=== PATIENT | male | born 1935 | race Caucasian/White ===

== ENCOUNTER 2019-01-12 23:36 | Emergency (ER) | payer OTHER ==
[~2019-01-12] VITALS: Ht 185.4 cm; Wt 88.9 kg
[~2019-01-12 23:36] MED LIST: ASPI81EC PO; OMEP20ER PO; PROM25 PO; ROSU5 PO; XARELTO10 MG; [UNRECOGNIZED DRUG - REMARK]
[2019-01-13 00:43] LABS: Source, Urine Catheter
[2019-01-13 00:48] LABS: Bilirubin, Urine Neg (Neg); Blood, Urine 2+ (Neg); Glucose Qualitative, Urine Neg (Neg); Ketones, Urine Neg (Neg); Leukocyte Esterase, Urine 1+ (Neg); Nitrite, Urine Neg (Neg); Protein, Urine Neg (Neg); Urobilinogen, Urine NORM (Normal)
[2019-01-13 00:53] LABS: Appearance, Urine Clear (Clear); Color, Urine Yellow (P-Yellow)
[2019-01-13 00:55] LABS: Bacteria Few /hpf; Squamous Epithelial Cells Not Seen /hpf (Few); White Blood Cells, Urine 0-2 /hpf (0-5)
== END 2019-01-13 01:19 | disposition home or self-care (01) ==
LOC: ER 23:36
PROVIDERS: Emergency Medicine
DX: R33.9 Retention of urine, unspecified (principal); Z88.5 Allergy status to narcotic agent; Z79.899 Other long term (current) drug therapy
CPT/HCPCS: 51702; 81001; 87077; 87086; 87186; 99283-25

== ENCOUNTER 2019-03-02 08:18 | Day surgery (SDC) | payer OTHER, SELFPAY ==
[~2019-03-02 08:18] MED LIST changes: +ALFU10 PO; +DILT60 PO; +LANS15EC PO; +POLY500 PO; +SERT25 PO; +VITAMIN B12 PO; +Vitamin D2000 UNIT PO; +XARELTO15 MG PO
--- NOTE | 2019-03-02 09:49 | NUR ---
Ambulatory in Day Surgery. Surgical site prepped with 2% Chlorhexidine cloth wipe. History, Chart, Medications and Allergies reviewed before start of procedure.Patient confirms NPO status and agrees with scheduled surgery. Pre-Op teaching done. Pt verbalizes understanding. Patient reports completing Chlorhexadine shower X2 prior to admission to hospital.Patient States Post-Procedure ride home has been arranged.
--- NOTE | 2019-03-02 12:26 | NUR ---
PT AWAKE, CONVERSING WITH STAFF. EATING CRACKERS AND SIPPING ON PO FLUIDS. DAUGHTER AT BEDSIDE. PT RATES PAIN 2/10 BUT STATES "OH I FEEL THAT" WHEN SAT UP ON STRETCHER.
--- NOTE | 2019-03-02 12:36 | NUR ---
PT DENIES NEED FOR PAIN MEDICATION. WISHES TO GO HOME WITHOUT TAKING ANY. DAUGHTER WILL TAKE PATIENT HOME AND BE WITH PATIENT TODAY.
--- NOTE | 2019-03-02 12:42 | NUR ---
REVIEWED DISCHARGE INSTRUCTIONS WITH PATIENT AND DAUGHTER, BOTH OF WHOM VERBALIZE UNDERSTANDING OF ALL INSTRUCTIONS GIVEN. PT STATES HE FEELS "READY TO GO HOME".
--- NOTE | 2019-03-02 13:00 | NUR ---
IV DC TIP INTACT. PT DC HOME VIA WC WITH DAUGHTER TO DRIVE HIM. DRESSED SELF WITH MINIMAL ASSISTANCE BY THIS RN.
== END 2019-03-02 22:43 | disposition home or self-care (01) ==
LOC: ORSCMMR 08:18 → ORD 10:15 → ORSCMMR 10:15
PROVIDERS: Surgery
PROC: 0YU50JZ Supplement Right Inguinal Region with Synthetic Substitute, Open Approach (ICD-10-PCS; principal; 2019-03-02 10:15)
DX: K40.90 Unilateral inguinal hernia, without obstruction or gangrene, not specified as recurrent (principal); I10 Essential (primary) hypertension; I48.0 Paroxysmal atrial fibrillation; Z79.01 Long term (current) use of anticoagulants; K21.9 Gastro-esophageal reflux disease without esophagitis; Z79.899 Other long term (current) drug therapy
CPT/HCPCS: C1781; J0690; J1100; J2405; J2704; J3010; J7120

== ENCOUNTER 2019-03-06 08:06 | Emergency (ER) | payer OTHER ==
[~2019-03-06] VITALS: Ht 185.4 cm; Wt 90.7 kg
[2019-03-06 08:50] LABS: Calcium, Ionized (POC) 1.14 mmol/L (1.10-1.46); Chloride (POC) 99 mmol/L (98-108); Creatinine (POC) 0.8 mg/dL (0.8-1.3); Glucose (ISTAT POC) 92 mg/dL (70-99); Hemoglobin (POC) 12.2 g/dL (13.5-17.5); Potassium (POC) 4.2 mmol/L (3.5-5.5); Sodium (POC) 136 mmol/L (135-148); Total CO2 (POC) 30 mmol/L (21-32)
[2019-03-06] MEDS ORDERED: FINA5 PO (09:00)
== END 2019-03-06 11:23 | disposition home or self-care (01) ==
LOC: ER 08:06
PROVIDERS: Emergency Medicine
DX: S01.01XA Laceration without foreign body of scalp, initial encounter (principal); S80.02XA Contusion of left knee, initial encounter; S80.01XA Contusion of right knee, initial encounter; D68.9 Coagulation defect, unspecified; T50.905A Adverse effect of unspecified drugs, medicaments and biological substances, initial encounter; E78.00 Pure hypercholesterolemia, unspecified; Z88.5 Allergy status to narcotic agent; Z88.8 Allergy status to other drugs, medicaments and biological substances; Z79.899 Other long term (current) drug therapy; Z79.01 Long term (current) use of anticoagulants; W18.39XA Other fall on same level, initial encounter
CPT/HCPCS: 12004; 36415; 70450; 73562-LT; 80047; 85014; 90471; 90714; 93005; 93010; 99284-25

== ENCOUNTER 2019-10-28 11:18 | Emergency (ER) | payer OTHER ==
[~2019-10-28] VITALS: Ht 182.9 cm; Wt 86.2 kg
[~2019-10-28 11:18] MED LIST changes: +FINA5 PO; +OXYC5 PO
[2019-10-28] MEDS ORDERED: HYDR1TAB94 PO (15:47)
[2019-10-28] MEDS ORDERED: Miralax17 GM PO (15:47)
[2019-10-28] MEDS ORDERED: ONDA4ODT SL (15:47)
== END 2019-10-28 16:04 | disposition home or self-care (01) ==
LOC: ER 11:18
DX: S22.081A Stable burst fracture of T11-T12 vertebra, initial encounter for closed fracture (principal); Z88.5 Allergy status to narcotic agent; Z88.8 Allergy status to other drugs, medicaments and biological substances; Z79.899 Other long term (current) drug therapy; E78.5 Hyperlipidemia, unspecified; W18.2XXA Fall in (into) shower or empty bathtub, initial encounter
CPT/HCPCS: 36415; 72148; 96374; 96375; 99283-25; J2405; J3010

== ENCOUNTER 2020-11-17 08:34 | Day surgery (SDC) | payer OTHER ==
[~2020-11-17] VITALS: Ht 188 cm; Wt 80.4 kg
[~2020-11-17 08:34] MED LIST changes: +HYDR1TAB94 PO; +Miralax17 GM PO; +ONDA4ODT SL
== END 2020-11-17 11:40 | disposition home or self-care (01) ==
LOC: ORSCSDS 08:34
PROVIDERS: Internal Medicine Gastroenterology
PROC: 0DBK8ZX Excision of Ascending Colon, Via Natural or Artificial Opening Endoscopic, Diagnostic (ICD-10-PCS; principal; 2020-11-17 10:15)
PROC: 0DB98ZX Excision of Duodenum, Via Natural or Artificial Opening Endoscopic, Diagnostic (ICD-10-PCS; principal; 2020-11-17 10:15)
PROC: 0DBH8ZX Excision of Cecum, Via Natural or Artificial Opening Endoscopic, Diagnostic (ICD-10-PCS; principal; 2020-11-17 10:15)
PROC: 0DB78ZX Excision of Stomach, Pylorus, Via Natural or Artificial Opening Endoscopic, Diagnostic (ICD-10-PCS; principal; 2020-11-17 10:15)
DX: D50.9 Iron deficiency anemia, unspecified (principal); D12.0 Benign neoplasm of cecum; D12.2 Benign neoplasm of ascending colon; K21.9 Gastro-esophageal reflux disease without esophagitis; K29.70 Gastritis, unspecified, without bleeding; K31.7 Polyp of stomach and duodenum; K57.30 Diverticulosis of large intestine without perforation or abscess without bleeding; K64.8 Other hemorrhoids; Z87.891 Personal history of nicotine dependence; Z79.01 Long term (current) use of anticoagulants; Z79.899 Other long term (current) drug therapy
CPT/HCPCS: 88305; 88342; J2704; J7120

== ENCOUNTER → 2021-02-08 | Outpatient (CLI) | payer OTHER ==
[2021-02-09 09:42] LABS: Stool Occult Bld Immuno 1 Negative (NEGATIVE)
== END | disposition home or self-care (01) ==
LOC: LAB SHORT 09:00 → LAB 09:00
PROVIDERS: Internal Medicine Gastroenterology
DX: D50.9 Iron deficiency anemia, unspecified (principal)
CPT/HCPCS: 82274

== ENCOUNTER → 2021-06-22 | Outpatient (CLI) | payer OTHER ==
[2021-06-22 13:09] LABS: Source, Urine Clean Catch
[2021-06-22 17:59] LABS: Appearance, Urine Clear (Clear); Bilirubin, Urine Neg (Neg); Blood, Urine 2+ (Neg); Color, Urine Yellow (P-Yellow); Glucose Qualitative, Urine Neg (Neg); Ketones, Urine Neg (Neg); Leukocyte Esterase, Urine Neg (Neg); Nitrite, Urine Neg (Neg); Protein, Urine Neg (Neg); Urobilinogen, Urine 2+ (Normal)
[2021-06-22 18:37] LABS: Bacteria Few /hpf; Calcium Oxalate Crystals Rare /hpf; Hyaline Casts 0-2 /lpf (0-2); Mucus Light (0-Heavy); Squamous Epithelial Cells Rare /hpf (Few)
== END ==
LOC: LAB SHORT 13:06 → LAB 13:06
PROVIDERS: Internal Medicine
DX: R31.29 Other microscopic hematuria (principal)
CPT/HCPCS: 81001

== ENCOUNTER 2022-07-24 12:53 | Inpatient (IN) | payer OTHER ==
[~2022-07-24] VITALS: Ht 175.3 cm; Wt 84.5 kg
[2022-07-24 13:27] LABS: BASOPHILS ABSOLUTE AUTO 0.05 K/mm3 (0.00-0.23); BASOPHILS PERCENT AUTO 0 % (0-2); EOSINOPHILS ABSOLUTE AUTO 0.21 K/mm3 (0.00-0.68); EOSINOPHILS PERCENT AUTO 2 % (0-6); Hemoglobin 10.8 g/dL (13.5-17.5); IMMATURE GRAN ABSOLUTE AUTO 0.09 K/mm3 (0.00-0.10); IMMATURE GRAN PERCENT AUTO 1 % (0-1); LYMPHOCYTES ABSOLUTE AUTO 1.01 K/mm3 (0.84-5.20); LYMPHOCYTES PERCENT AUTO 7 % (21-46); MONOCYTES ABSOLUTE AUTO 0.81 K/mm3 (0.16-1.47); MONOCYTES PERCENT AUTO 6 % (4-13); Mean Corpuscular HGB Conc 32.7 g/dL (31.5-36.5); Mean Corpuscular Volume 89 fL (80-100); Mean Platelet Volume 9.3 fL (9.1-12.4); NEUTROPHILS ABSOLUTE AUTO 11.54 K/mm3 (1.96-9.15); NEUTROPHILS PERCENT AUTO 84 % (41-73); Platelet Count 237 K/mm3 (150-400); RDW Coefficient Variation 12.9 % (11.7-14.2); RDW Standard Deviation 41.4 fL (35.1-46.3); Red Blood Cell Count 3.72 M/mm3 (4.30-5.90); White Blood Cell Count 13.71 K/mm3 (4.00-11.30)
[2022-07-24] MEDS ORDERED: TAMSULOSIN HCL0.4 M1 PO (13:34)
[2022-07-24] MEDS ORDERED: PANTOPRAZOLE SO40 M2 PO (13:35)
[2022-07-24] MEDS ORDERED: GABA100 PO (13:35)
[2022-07-24 13:40] LABS: Albumin, Blood 3.2 g/dL (3.4-5.0); Albumin/Globulin Ratio 0.7 (0.8-1.8); Bilirubin, Total 0.6 mg/dL (0.1-1.0); Calcium, Blood 9.4 mg/dL (8.5-10.1); Creatinine, Blood 0.7 mg/dL (0.60-1.20); Globulin, Blood 4.4 g/dL (2.2-4.0); Potassium, Blood 4.2 mmol/L (3.5-5.5); Total Protein, Blood 7.6 g/dL (6.4-8.2)
[2022-07-24 16:50] LABS: Source, Urine Straight Cath
[2022-07-24 16:52] LABS: Appearance, Urine Clear (Clear); Bilirubin, Urine Neg (Neg); Blood, Urine 2+ (Neg); Color, Urine Amber (P-Yellow); Glucose Qualitative, Urine Neg (Neg); Ketones, Urine Neg (Neg); Leukocyte Esterase, Urine Neg (Neg); Nitrite, Urine Neg (Neg); Protein, Urine 1+ (Neg); Specific Gravity, Urine 1.015 (1.003-1.022); Urobilinogen, Urine 1+ (Normal)
[2022-07-24 17:03] LABS: Bacteria Many /hpf; Mucus Light (0-Heavy); Squamous Epithelial Cells Rare /hpf (Few)
[2022-07-24 17:53] VITALS: BP 130/65
[2022-07-24] MEDS ORDERED: IBUP400 PO (18:01)
[2022-07-24] MEDS ORDERED: Acetaminophen650 M1 PO (18:01)
--- NOTE | 2022-07-24 18:21 | NUR ---
PATIENT CAME UP FROM ER TODAY AT 1800. LEFT HIP FX PATIENT IS A&OX3-FORGETFUL AT TIMES WITH BED ALARM ON A PRECAUTION. VS ARE WNL. PATIENT RATES 10/10 PAIN ON THE LEFT HIP AND HAS BEEN GIVEN IV DILAUDID. LEFT HIP IS SWOLLEN. PATIENT DENIES NUMBNESS OR TINGLING. CAN MOVE ALL FINGERS AND TOES WHEN ASKED. PATIENT IS LAYING IN BED WITH CALL LIGHT IN REACH. DAUGHTER AND SON WERE IN THE ROOM BUT LEFT TO GO HOME AND SLEEP. THEIR PHONE NUMBERS ARE ON THE WHITE BOARD. THE PLAN IS FOR SURGERY WITH DR. PAGAN TOMORROW. PATIENT WILL BE NPO AT MIDNIGHT.
[2022-07-24 19:07] VITALS: BP 112/59
[2022-07-25] VITALS (25 sets, daily range): BP systolic 88–144; BP diastolic 37–98
--- NOTE | 2022-07-25 04:57 | NUR ---
SHIFT SUMMARY VSS. TELE READS AFIB @78. PT SLEPT ON AND OFF T/O THE NIGHT. MEDICATED FOR PAIN WITH PRN'S. LOW URINE OUTPUT NOTED, [address] LOUISE CALLED AND OBTAINED ORDER FOR OTD OF NS 500 ML/HR. SENSATION AND CIRCULATION REMAINS INTACT. NO ACUTE EVENTS T/O THE NIGHT. PLAN FOR PT TO GO TO OR TODAY. THE PATIENT IS CURRENTLY SLEEPING, IN NO DISTRESS, CALL LIGHT IN REACH
[2022-07-25 06:09] LABS: BASOPHILS ABSOLUTE AUTO 0.04 K/mm3 (0.00-0.23); BASOPHILS PERCENT AUTO 1 % (0-2); EOSINOPHILS ABSOLUTE AUTO 0.22 K/mm3 (0.00-0.68); EOSINOPHILS PERCENT AUTO 3 % (0-6); Hematocrit 25.8 % (37.0-53.0); Hemoglobin 8.2 g/dL (13.5-17.5); IMMATURE GRAN ABSOLUTE AUTO 0.04 K/mm3 (0.00-0.10); IMMATURE GRAN PERCENT AUTO 1 % (0-1); LYMPHOCYTES ABSOLUTE AUTO 0.86 K/mm3 (0.84-5.20); LYMPHOCYTES PERCENT AUTO 11 % (21-46); MONOCYTES ABSOLUTE AUTO 0.96 K/mm3 (0.16-1.47); MONOCYTES PERCENT AUTO 12 % (4-13); Mean Corpuscular HGB Conc 31.8 g/dL (31.5-36.5); Mean Corpuscular Volume 91 fL (80-100); Mean Platelet Volume 9.6 fL (9.1-12.4); NEUTROPHILS ABSOLUTE AUTO 6.09 K/mm3 (1.96-9.15); NEUTROPHILS PERCENT AUTO 74 % (41-73); Platelet Count 191 K/mm3 (150-400); RDW Coefficient Variation 13.2 % (11.7-14.2); RDW Standard Deviation 43.9 fL (35.1-46.3); Red Blood Cell Count 2.83 M/mm3 (4.30-5.90); White Blood Cell Count 8.21 K/mm3 (4.00-11.30)
[2022-07-25 06:51] LABS: Alanine Aminotransfer (ALT/SGP 14 U/L (12-78); Albumin, Blood 2.5 g/dL (3.4-5.0); Albumin/Globulin Ratio 0.7 (0.8-1.8); Alk Phos 64 U/L (50-136); Anion Gap Unable to Calculate mmol/L (6-16); Aspartate Aminotrans (AST/SGOT 12 U/L (12-37); Bilirubin, Total 0.7 mg/dL (0.1-1.0); Blood Urea Nitrogen 19 mg/dL (8-24); Bun/Creatinine Ratio 20.8 (12.0-20.0); CO2, Blood 32 mmol/L (21-32); Calcium, Blood 8.3 mg/dL (8.5-10.1); Chloride, Blood 103 mmol/L (98-108); Creatinine, Blood 0.91 mg/dL (0.60-1.20); Globulin, Blood 3.7 g/dL (2.2-4.0); Glomerular Filtration Rate 81 (60-); Glucose, Blood 104 mg/dL (70-99); Potassium, Blood 4.6 mmol/L (3.5-5.5); Sodium, Blood 134 mmol/L (136-145); Total Protein, Blood 6.2 g/dL (6.4-8.2)
--- NOTE | 2022-07-25 17:55 | NUR ---
SHIFT SUMMARY PT RETURNED TO FLOOR FROM OR AT APROX 1715. 3 FOAM DRESSINGS TO LLE C/D/I. PT DENIES PAIN UPON ARRIVAL. TELE PLACED BACK ON MONITOR UPON ARRIVAL AFIB 87. PT FALLS ASLEEP EASILY BUT AWAKENS TO VERBAL STIMULI. GIVEN CLEAR LIQUIDS, WILL ADVANCE TOLERATED.
[2022-07-26 03:09] VITALS: BP 104/52
--- NOTE | 2022-07-26 04:30 | NUR ---
SHIFT SUMMARY POD1 FOR LEFT FEMUR NAILING. DRESSINGS ARE C/D/I. CIRCULATION REMAINS INTACT BUT PT REPORTS DULLED SENSATION IN LLE. PT UNABLE TO ELABORATE ON THIS. VSS, TELE READS AFIB W/LANDY'S @92. PT HAS REMAINED VERY PAINFUL T/O THE NIGHT. REFUSED PAIN MEDICATION T/O THE NIGHT BUT WAS ABLE TO MEDICATE WITH TYLENOL ONCE. PT REPOSITIONED T/O THE NIGHT. PT REQUIRED A STRAIT CATH AT THE BEGINNING OF SHIFT PER BLADDER MANAGEMENT PROTOCOL, PT ABLE TO VOID ONCE AFTER THIS. PT TOLLERATING PO INTAKE W/O N/V. SPOKE WITH PTS DAUGHTER AND SHE REPORTS PT NEEDS A SWALLOW EVAL PER HIS PCP, WILL PASS ON TO NEXT SHIFT. AWAITING PHYSICAL THERAPY EVAL. NO ACUTE EVENTS T/O THE NIGHT. THE PATIENT IS CURRENTLY SLEEPING, IN NO DISTRESS, CALL LIGHT IN REACH
[2022-07-26 07:10] VITALS: BP 103/53
[2022-07-26 16:13] VITALS: BP 115/56
[2022-07-26 19:20] VITALS: BP 112/42
[2022-07-27] VITALS (13 sets, daily range): BP systolic 95–132; BP diastolic 39–66
[2022-07-27 04:18] LABS: Hematocrit 18.3 % (37.0-53.0); Mean Corpuscular HGB 29.1 pg (26.0-34.0); Mean Corpuscular HGB Conc 32.2 g/dL (31.5-36.5); Mean Corpuscular Volume 90 fL (80-100); Mean Platelet Volume 9.7 fL (9.1-12.4); Platelet Count 162 K/mm3 (150-400); RDW Coefficient Variation 13.2 % (11.7-14.2); RDW Standard Deviation 43.7 fL (35.1-46.3); Red Blood Cell Count 2.03 M/mm3 (4.30-5.90)
[2022-07-27 04:26] LABS: Hemoglobin 5.9 g/dL (13.5-17.5)
[2022-07-27 04:47] LABS: Anion Gap Unable to Calculate mmol/L (6-16); Blood Urea Nitrogen 26 mg/dL (8-24); Bun/Creatinine Ratio 34.4 (12.0-20.0); CO2, Blood 31 mmol/L (21-32); Calcium, Blood 8.4 mg/dL (8.5-10.1); Chloride, Blood 101 mmol/L (98-108); Creatinine, Blood 0.76 mg/dL (0.60-1.20); Glomerular Filtration Rate 86 (60-); Glucose, Blood 99 mg/dL (70-99); Sodium, Blood 130 mmol/L (136-145)
--- NOTE | 2022-07-27 14:18 | NUR ---
PT RESTING IN BED. PER PT REQUEST I TURNED ON A BASEBALL GAME ON THE TV. PATIENT IN BED WATCHING TV. CALL LIGHT WITHIN REACH AND BED ALARM ON FOR SAFETY.
[2022-07-27 14:19] LABS: BASOPHILS ABSOLUTE AUTO 0.03 K/mm3 (0.00-0.23); BASOPHILS PERCENT AUTO 0 % (0-2); EOSINOPHILS ABSOLUTE AUTO 0.34 K/mm3 (0.00-0.68); EOSINOPHILS PERCENT AUTO 3 % (0-6); Hematocrit 21.6 % (37.0-53.0); IMMATURE GRAN ABSOLUTE AUTO 0.12 K/mm3 (0.00-0.10); IMMATURE GRAN PERCENT AUTO 1 % (0-1); LYMPHOCYTES ABSOLUTE AUTO 1.17 K/mm3 (0.84-5.20); LYMPHOCYTES PERCENT AUTO 12 % (21-46); MONOCYTES ABSOLUTE AUTO 1.07 K/mm3 (0.16-1.47); MONOCYTES PERCENT AUTO 11 % (4-13); Mean Corpuscular HGB 29.3 pg (26.0-34.0); Mean Corpuscular HGB Conc 32.4 g/dL (31.5-36.5); Mean Corpuscular Volume 90 fL (80-100); Mean Platelet Volume 9.8 fL (9.1-12.4); NEUTROPHILS ABSOLUTE AUTO 7.25 K/mm3 (1.96-9.15); NEUTROPHILS PERCENT AUTO 73 % (41-73); Platelet Count 168 K/mm3 (150-400); RDW Coefficient Variation 13.2 % (11.7-14.2); RDW Standard Deviation 43.6 fL (35.1-46.3); Red Blood Cell Count 2.39 M/mm3 (4.30-5.90); White Blood Cell Count 9.98 K/mm3 (4.00-11.30)
--- NOTE | 2022-07-27 15:07 | NUR ---
REPOSITIONED PT. CALL LIGHT WITHIN REACH AND BED ALARM ON. PATIENT RESTING IN BED WITH EYES CLOSED.
--- NOTE | 2022-07-27 17:41 | NUR ---
SHIFT SUMMARY PT POSTOP DAY 2. PT HGB WAS 5.9 AT BEGINGING OF SHIFT AND WAS GIVEN 1 UNIT OF PACKED RBC. A SECOND UNIT WAS STARTED AT 1550 AND IS CURRENTLY RUNNING. PT TOLERATED BOTH UNTIS WELL. RN GAVE PATIENTS MEDICATION IN APPLE SAUCE WHOLE, 1 AT A TIME AND THE PT TOLERATED WELL. SPEECH THERAPY WAS NOTIFIED. LEFT LEG IS FIRM, NO BLEEDING NOTED THROUGH THE DRESSING. ALL 3 DRESSINGS ARE CDI. PT HAD FAMILY VISIT FOR AN HOUR AND WAS REPOSITIONED THROUGHOUT THE DAY.
--- NOTE | 2022-07-27 18:33 | NUR ---
SUMMARY REVIEWED SN CHARTING. PT REC'D 2 UNITS PRBCS T/O SHIFT. TOLERATED WELL. PT REFUSED TO TAKE PILLS CRUSHED IN APPLESAUCE PER ST RECOMMENDATIONS. ADMINISTERED PILLS 1 AT A TIME IN APPLESAUCE; PT TOLERATED WELL. ST NOTIFIED. MEDICATED PER ORDERS FOR PAIN. DID NOT GET UP THIS SHIFT R/T PT RECEIVING PRBCS. CALL LIGHT IN REACH.
[2022-07-27 20:21] LABS: Hematocrit 23.2 % (37.0-53.0); Hemoglobin 7.7 g/dL (13.5-17.5)
[2022-07-28 02:40] VITALS: BP 123/56
--- NOTE | 2022-07-28 06:44 | NUR ---
SHIFT SUMMARY PT ALERT AND ORIENTED. COOPERATIVE WITH CARE. NO ACUTE CHANGES. MEDICATING FOR PAIN PER EMAR. TOLERATING PO INTAKE. REPLACED CORWIN DRESSINGS WITH AQUACELS. PLACED MEPILEX ON COCCYX FOR PROTECTION. CALL LIGHT WITHIN REACH.
[2022-07-28 07:11] VITALS: BP 124/63
--- NOTE | 2022-07-28 08:09 | NUR ---
TELE CALLED THIS AM STATING PT WAS HAVING EXTRA P WAVES. REQUESTED TELE. OBTAINED ORDER FROM DR PEACE AND TELE COMPLETED. DR PEACE TO SEE PT AND REVIEW TELE. NO NEW ORDERS AT THIS TIME. SN AND SERVICES COORDINATOR ATTEMPTED TO GET PT TO CHAIR FOR BREAKFAST BUT PT WAS ONLY ABLE TO PARTIALLY STAND, COULD NOT STAND UP STRAIGHT OR TAKE STEPS. ASSISTED BACK TO BED AND PUT FULLY UPRIGHT IN BED FOR BREAKFAST.
[2022-07-28 09:51] LABS: Hematocrit 24.8 % (37.0-53.0); Hemoglobin 8.1 g/dL (13.5-17.5)
--- NOTE | 2022-07-28 11:19 | NUR ---
PT IS VISITING WITH FAMILY MEMBERS. REPOSITIONED PT TO [facility] TO DRINK HOT COCOA. PT LAYING IN BED WITH CALL LIGHT WITHIN REACH AND BED ALARM ON FOR SAFETY.
--- NOTE | 2022-07-28 13:14 | NUR ---
ROUNDING PATIENT FINISHING UP VISITS WITH FAMILY. REPOSITIONED PATIENT TO TO LEFT SIDE. PT IS RESTING IN BED. CALL LIGHT WITHIN REACH AND BED ALARM ON.
--- NOTE | 2022-07-28 13:58 | NUR ---
PATIENT LAYING IN BED ASLEEP. UNLABORED RESPIRATIONS NOTED. BED IN LOWEST POSITION, CALL LIGHT WITHIN REACH, AND BED ALARM ON.
[2022-07-28 16:18] VITALS: BP 138/55
--- NOTE | 2022-07-28 16:36 | NUR ---
SHIFT SUMMARY NO ACUTE CHANGES. PT HAD FAMILY VISIT FOR LUNCH. PT ATTEMPED TO EAT LUNCH IN CHAIR BUT WAS TO WEAK AT THAT TIME. HE WAS ABLE TO STAND AT BEDSIDE WITH 2 PERSON ASSIST BUT UNABLE TO WALK TO CHAIR. PLAN TO TRY AND USE SIT TO STAND TO GET INTO CHAIR FOR DINNER. PT TOLERATED ONE PILL AT A TIME IN APPLE SAUCE. PT WAS PLEASENT THROUGHOUT THE DAY. APPEARS TO HAVE BRUISING ON SCROTUM AND PENIS, ENCOUAGED PATIENT TO NOT LEAVE URINAL IN PLACE FOR EXTENDED PERIODS OF TIME. CALL LIGHT WITHIN REACH, BED ALARM ON FOR SAFETY.
--- NOTE | 2022-07-28 16:59 | NUR ---
REVIEWED SN SHIFT SUMMARY AND CHARTING.
[2022-07-28 19:37] VITALS: BP 145/68
[2022-07-29 04:08] VITALS: BP 147/64
--- NOTE | 2022-07-29 06:36 | NUR ---
SHIFT SUMMARY PT A&OX3, AND COOPERATIVE WITH CARE. NO ACUTE CHANGES. MEDICATING FOR PAIN PER EMAR. PT MOVED FROM 224 TO 226 FOR ACCESS TO LIFT IF NEEDED. TOLERATING PO INTAKE WHILE UPRIGHT. REPLACED AQUACELS WITH MEDIPORE DRESSINGS. CALL LIGHT WITHIN REACH.
[2022-07-29 07:20] VITALS: BP 147/68
--- NOTE | 2022-07-29 13:01 | NUR ---
DISCHARGE PATIENT EATING & DRINKING WELL WITH SPEECH THERPAY PRECAUTIONS RECOMMENDED IN PLACE. VOIDING WELL, INCONTINENT AT TIMES. PAIN MANAGED WELL PER EMAR. 2P MAX ASSIST TO STAND AT EDGE OF BED, LIFT RECOMMENDED FOR TRANSFER TO CHAIR. CALLS APPROPRIATELY. REPORT CALLED TO SATINDER BUCKLEY AT [facility]. WAITING FOR W/C TRANSPORT.
--- NOTE | 2022-07-29 14:17 | NUR ---
patient escorted out via w/c with [facility]
== END 2022-07-29 14:11 | DRG 481 ==
LOC: ER 12:53 → SURS 16:18
PROVIDERS: Emergency Medicine; Internal Medicine; Orthopaedic Surgery; ADMIT Internal Medicine
PROC: 0QS736Z Reposition Left Upper Femur with Intramedullary Internal Fixation Device, Percutaneous Approach (ICD-10-PCS; principal; 2022-07-25 12:00)
PROC: 30233N1 Transfusion of Nonautologous Red Blood Cells into Peripheral Vein, Percutaneous Approach (ICD-10-PCS; 2022-07-27)
DX: S72.142A Displaced intertrochanteric fracture of left femur, initial encounter for closed fracture (principal); I48.20 Chronic atrial fibrillation, unspecified; I50.32 Chronic diastolic (congestive) heart failure; R13.12 Dysphagia, oropharyngeal phase; I27.21 Secondary pulmonary arterial hypertension; I11.0 Hypertensive heart disease with heart failure; E78.5 Hyperlipidemia, unspecified; K46.9 Unspecified abdominal hernia without obstruction or gangrene; I34.0 Nonrheumatic mitral (valve) insufficiency; R09.02 Hypoxemia; N40.0 Benign prostatic hyperplasia without lower urinary tract symptoms; K21.9 Gastro-esophageal reflux disease without esophagitis; F32.A Depression, unspecified; D63.8 Anemia in other chronic diseases classified elsewhere; B96.89 Other specified bacterial agents as the cause of diseases classified elsewhere; W01.0XXA Fall on same level from slipping, tripping and stumbling without subsequent striking against object, initial encounter; Z98.890 Other specified postprocedural states; Z95.2 Presence of prosthetic heart valve; Z79.01 Long term (current) use of anticoagulants; Z88.8 Allergy status to other drugs, medicaments and biological substances; Z88.5 Allergy status to narcotic agent; Z88.1 Allergy status to other antibiotic agents; Z79.899 Other long term (current) drug therapy
CPT/HCPCS: 36415; 36430; 70450; 71045; 73502; 73552; 74230; 80048; 80053; 81001; 83880; 85014; 85018; 85025; 85027; 86850; 86900; 86901; 86923; 87086; 92526; 92610; 92611; 93005; 93010; 93306; 94760; 96374-59; 96375-59; 96376-59; 97110; 97112; 97162; 97166; 97530; 99285-25; A9270; C1713; C1769; J0690; J1100; J1170; J2370; J2405; J2704; J2765; J3010; J7030; J7050; J7120; P9016